=== PATIENT | male | born 1990 | race Caucasian/White ===

== ENCOUNTER 2017-11-12 17:24 | Emergency (ER) | payer SELFPAY ==
[~2017-11-12] VITALS: Ht 182.9 cm; Wt 100.0 kg
[~2017-11-12 17:24] MED LIST: FLON0.053
[2017-11-12 17:29] VITALS: BP 131/62; PULSE 93; RESP 16; O2SAT 100
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
[2017-11-12] MEDS ORDERED: PERC5TAB12 PO (19:16)
[2017-11-12 19:27] VITALS: BP 125/73; PULSE 93; RESP 18; TEMP 98.2; O2SAT 96
--- NOTE | 2017-11-13 19:34 | EKG ---
Date Performed: 11/12/2017 Time Performed: 17:41:53 PTAGE: 27 years EKG: Sinus rhythm EARLY REPOLARIZATION BORDERLINE ECG NO PREVIOUS TRACING DOCTOR: El Mays Interpretating Date/Time 11/13/2017 19:33:41
== END 2017-11-12 20:38 | disposition home or self-care (01) ==
LOC: NEPE 17:24
DX: S09.90XA Unspecified injury of head, initial encounter (principal); S82.132A Displaced fracture of medial condyle of left tibia, initial encounter for closed fracture; M25.561 Pain in right knee; M25.562 Pain in left knee; R55 Syncope and collapse; V86.96XA Unspecified occupant of dirt bike or motor/cross bike injured in nontraffic accident, initial encounter
CPT/HCPCS: 70450; 72125; 73564; 93005; 99285; E0113; L0150; L1830